=== PATIENT | male | born 1955 | race Caucasian/White ===

== ENCOUNTER → 2018-01-02 | Outpatient (CLI) | payer BC ==
[2013-04-30 08:05] VITALS: BP 119/72
[~2018-01-02] MED LIST: CLARITIN10 MG PO; MUCINEX 60600 MG/TA1 PO; ZOLOFT25 MG PO
== END ==
LOC: RAD 12:26
DX: J32.3 Chronic sphenoidal sinusitis (principal); J30.9 Allergic rhinitis, unspecified; F32.9 Major depressive disorder, single episode, unspecified

== ENCOUNTER → 2019-08-27 | Outpatient (CLI) | payer BC ==
[2013-04-30 08:05] VITALS: BP 119/72
== END ==
LOC: RAD 14:20
DX: Z00.00 Encounter for general adult medical examination without abnormal findings (principal); Z23 Encounter for immunization; J98.11 Atelectasis; F32.9 Major depressive disorder, single episode, unspecified; I10 Essential (primary) hypertension; J30.9 Allergic rhinitis, unspecified; N40.0 Benign prostatic hyperplasia without lower urinary tract symptoms; G47.33 Obstructive sleep apnea (adult) (pediatric); M25.511 Pain in right shoulder; M79.671 Pain in right foot

== ENCOUNTER → 2020-08-22 | Outpatient (CLI) | payer BC ==
[2013-04-30 08:05] VITALS: BP 119/72
== END ==
LOC: AMSURD 08:04
DX: Z01.818 Encounter for other preprocedural examination (principal); M19.072 Primary osteoarthritis, left ankle and foot; R00.1 Bradycardia, unspecified

== ENCOUNTER → 2020-08-30 | Outpatient (REF) ==
[2013-04-30 08:05] VITALS: BP 119/72
== END ==
LOC: LAB 08:08
DX: I10 Essential (primary) hypertension (principal)

== ENCOUNTER → 2022-03-25 | Outpatient (CLI) | payer BC | LOC: RAD 07:41 | DX: S49.82XA Other specified injuries of left shoulder and upper arm, initial encounter (principal); X58.XXXA Exposure to other specified factors, initial encounter | CPT/HCPCS: A9585; Q9967 ==

== ENCOUNTER → 2022-05-03 | Outpatient (CLI) | payer BC | LOC: LAB 10:23 | DX: Z01.812 Encounter for preprocedural laboratory examination (principal) ==

== ENCOUNTER → 2022-05-22 | Outpatient (CLI) | payer BC ==
[2022-05-22 09:23] LABS: BASO # 0.03 K/mm3 (0.02-0.10); EOS # 0.13 K/mm3 (0.04-0.40); EOS % 2.9 % (0.0-4.0); HEMATOCRIT 42.6 % (42.0-52.0); HEMOGLOBIN 13.8 g/dL (13.5-18.0); LYMPH# 1.34 K/mm3 (1.50-4.00); MEAN CELL VOLUME 98 fl (78-100); MEAN CORPUSCULAR HEMOGLOBIN 32 pg (27-31); MEAN CORPUSCULAR HGB CONC 32 g/dL (33-37); MEAN PLATELET VOLUME 8.8 fl (7.4-10.4); MONO # 0.52 K/mm3 (0.20-0.80); NEU # 2.54 K/mm3 (1.40-6.50); PLATELET COUNT 235 K/mm3 (130-400); RED BLOOD COUNT 4.37 M/mm3 (4.20-5.60); RED CELL DISTRIBUTION WIDTH 11.7 % (11.5-14.5); WHITE BLOOD COUNT 4.6 K/mm3 (4.8-10.8)
[2022-05-22 09:35] LABS: POTASSIUM 5.4 mmol/L (3.5-5.1)
[2022-05-22 09:36] LABS: PH-URINE 7.5 (5.0 - 8.0); URINE APPEARANCE CLEAR; URINE COLOR YELLOW; URINE PROTEIN(semi-quant) NEGATIVE (NEGATIVE)
[2022-05-22 09:37] LABS: CALCIUM 9.6 mg/dL (8.3-10.5); URINE BILIRUBIN NEGATIVE (NEGATIVE); URINE BLOOD NEGATIVE (NEGATIVE); URINE GLUCOSE NEGATIVE (NEGATIVE); URINE KETONE NEGATIVE (NEGATIVE); URINE LEUKOCYTE ESTERASE NEGATIVE (NEGATIVE); URINE MUCUS PRESENT (NOT PRESENT); URINE NITRATE NEGATIVE (NEGATIVE); URINE UROBILINOGEN NORMAL (NORMAL); URINE WBC 0-1 /hpf (0-3)
== END ==
LOC: LAB 08:59 → EDSTATUS 09:02
PROVIDERS: Family Medicine
DX: Z01.812 Encounter for preprocedural laboratory examination (principal); M25.512 Pain in left shoulder

== ENCOUNTER → 2022-05-23 | Outpatient (CLI) | payer BC ==
[2022-05-23 09:52] LABS: POTASSIUM 4.9 mmol/L (3.5-5.1)
[2022-05-23 09:53] LABS: CALCIUM 9.3 mg/dL (8.3-10.5)
== END ==
LOC: LAB 09:36
PROVIDERS: Family Medicine
DX: E87.5 Hyperkalemia (principal)

== ENCOUNTER → 2022-08-12 | Outpatient (CLI) | payer MEDICARE, BC ==
[2022-08-12 08:55] LABS: ALBUMIN 4.2 g/dL (3.4-4.8); POTASSIUM 4.6 mmol/L (3.5-5.1)
[2022-08-12 08:56] LABS: CALCIUM 9.1 mg/dL (8.3-10.5)
[2022-08-12 08:57] LABS: TOTAL PROTEIN 6.9 g/dL (6.2-8.1)
[2022-08-12 08:59] LABS: TOTAL BILIRUBIN 0.6 mg/dL (0.2-1.2)
== END ==
LOC: LAB 08:21
PROVIDERS: Family Medicine
DX: Z13.220 Encounter for screening for lipoid disorders (principal); E87.1 Hypo-osmolality and hyponatremia; I10 Essential (primary) hypertension

== ENCOUNTER → 2023-09-03 | Outpatient (CLI) | payer MEDICARE, BC ==
[2023-09-03 10:36] LABS: CALCIUM 8.9 mg/dL (8.3-10.5)
[2023-09-03 22:21] LABS: CREATININE OTHER SOURCE 67 mg/dL (47-110)
[2023-09-03 22:29] LABS: HEPATITIS C VIRUS ANTIBODY Negative (Negative)
== END ==
LOC: LAB 10:08
PROVIDERS: Family Medicine
DX: Z12.11 Encounter for screening for malignant neoplasm of colon (principal); Z11.59 Encounter for screening for other viral diseases; Z11.4 Encounter for screening for human immunodeficiency virus [HIV]; Z12.5 Encounter for screening for malignant neoplasm of prostate; K42.9 Umbilical hernia without obstruction or gangrene; E78.2 Mixed hyperlipidemia; G47.30 Sleep apnea, unspecified; L21.9 Seborrheic dermatitis, unspecified; F41.1 Generalized anxiety disorder; I10 Essential (primary) hypertension; N40.0 Benign prostatic hyperplasia without lower urinary tract symptoms

== ENCOUNTER → 2023-10-24 | Outpatient (CLI) | payer MEDICARE, BC | LOC: CARDREHAB 10:21 | DX: G47.33 Obstructive sleep apnea (adult) (pediatric) (principal) | CPT/HCPCS: G0399 ==

== ENCOUNTER → 2024-02-13 | Outpatient (CLI) | payer MEDICARE, BC ==
[2024-02-13 09:56] LABS: BASO # 0.03 K/mm3 (0.02-0.10); EOS # 0.18 K/mm3 (0.04-0.40); HEMATOCRIT 41.4 % (42.0-52.0); HEMOGLOBIN 13.7 g/dL (13.5-18.0); MEAN CELL VOLUME 94 fl (78-100); MEAN CORPUSCULAR HEMOGLOBIN 31 pg (27-31); MEAN CORPUSCULAR HGB CONC 33 g/dL (33-37); MEAN PLATELET VOLUME 8.7 fl (7.4-10.4); NEU # 3.65 K/mm3 (1.40-6.50); PLATELET COUNT 247 K/mm3 (130-400); RED BLOOD COUNT 4.39 M/mm3 (4.20-5.60); RED CELL DISTRIBUTION WIDTH 11.5 % (11.5-14.5); WHITE BLOOD COUNT 6.1 K/mm3 (4.8-10.8)
[2024-02-13 10:13] LABS: CALCIUM 9.7 mg/dL (8.3-10.5)
[2024-02-13 10:26] LABS: PROTHROMBIN TIME 10.1 SECONDS (9.0-12.0)
[2024-02-13 10:43] LABS: URINE APPEARANCE CLOUDY (CLEAR); URINE COLOR YELLOW (YELLOW); URINE GLUCOSE NEGATIVE (NEGATIVE); URINE PROTEIN(semi-quant) 1+ (NEGATIVE)
[2024-02-13 10:44] LABS: URINE BILIRUBIN 1+ (NEGATIVE); URINE BLOOD NEGATIVE (NEGATIVE); URINE KETONE 1+ (NEGATIVE); URINE LEUKOCYTE ESTERASE NEGATIVE (NEGATIVE); URINE MUCUS PRESENT (NOT PRESENT); URINE NITRATE NEGATIVE (NEGATIVE)
== END ==
LOC: LAB 09:34
PROVIDERS: Family Medicine
DX: Z01.818 Encounter for other preprocedural examination (principal)

== ENCOUNTER → 2024-11-15 | Outpatient (CLI) | payer MEDICARE, BC ==
[2024-11-15 09:04] LABS: CALCIUM 10.1 mg/dL (8.3-10.5)
== END ==
LOC: LAB 08:38
PROVIDERS: Family Medicine
DX: Z12.5 Encounter for screening for malignant neoplasm of prostate (principal); Z13.1 Encounter for screening for diabetes mellitus; E78.2 Mixed hyperlipidemia; I10 Essential (primary) hypertension

== ENCOUNTER → 2024-12-17 | Outpatient (CLI) | payer MEDICARE, BC | LOC: AMSURD 11:15 | DX: R00.1 Bradycardia, unspecified (principal) ==

== ENCOUNTER → 2025-01-22 | Outpatient (CLI) | payer MEDICARE, BC | LOC: RAD 07:12 → VAS 07:12 → RAD 07:30 | DX: I16.1 Hypertensive emergency (principal) ==